=== PATIENT | female | born 1965 | race Caucasian/White ===

== ENCOUNTER 2017-01-25 00:07 | Emergency (ER) | payer BC ==
[2017-01-25 00:17] VITALS: BP 142/83
== END 2017-01-25 00:30 | disposition left against medical advice (07) ==
LOC: ED 00:07
DX: Z53.21 Procedure and treatment not carried out due to patient leaving prior to being seen by health care provider (principal)

== ENCOUNTER 2018-07-29 22:08 | Emergency (ER) | payer BC ==
[~2018-07-29] VITALS: Ht 160 cm; Wt 74.8 kg
[2018-07-29 22:31] VITALS: Ht 160 cm; Wt 74.8 kg
[2018-07-29 23:01] VITALS: BP 131/90
== END 2018-07-29 23:30 | disposition home or self-care (01) ==
LOC: ED 22:08
DX: S62.619A Displaced fracture of proximal phalanx of unspecified finger, initial encounter for closed fracture (principal); W18.40XA Slipping, tripping and stumbling without falling, unspecified, initial encounter; Y93.89 Activity, other specified; Y92.89 Other specified places as the place of occurrence of the external cause; Y99.8 Other external cause status

== ENCOUNTER 2018-11-07 17:55 | Emergency (ER) | payer BC ==
[~2018-11-07] VITALS: Ht 160 cm; Wt 73.0 kg
[2018-11-07 18:32] VITALS: Ht 160 cm; Wt 73.0 kg
[2018-11-07 21:26] VITALS: BP 138/91
== END 2018-11-07 21:26 | disposition home or self-care (01) ==
LOC: ED 17:55
DX: J01.90 Acute sinusitis, unspecified (principal)
CPT/HCPCS: J1100